=== PATIENT | male | born 1975 | race Caucasian/White ===

== ENCOUNTER 2016-03-13 13:28 | Emergency (ER) | payer BC ==
[2016-03-13 13:50] VITALS: BP 146/94
--- NOTE | 2016-03-13 16:06 | ERNOTE ---
ENT HPI Date of Service: 03/13/16 Presenting Symptoms: other - Sore throat Time Seen by Provider: 03/13/16 15:52 Source: patient, RN notes reviewed Exam Limitations: no limitations - Immun/Allergies/Home Medications Immunizations: IMMUNIZATION HX Immunizations Up to Date Yes History of Influenza Vaccine No Allergies/Adverse Reactions: Allergies Allergy/AdvReac Type Severity Reaction Status Date / Time No Known Allergies Allergy Verified 03/13/16 13:50 Home Medications: HOME MEDICATIONS NK [No Home Medication] 03/13/16 [Last Taken Unknown] - History of Present Illness Narrative: 40 y/o male ambulatory to ED for a sore throat that began 1 week ago. He also reports a cough, chills, headache, and body aches. His symptoms improve when he takes OTC cold medications. He reports that his coworkers have had similar symptoms. ENT Location: Present: throat Prearrival Treatment: Present: over the counter meds Associated Symptoms - ENT: Reports: malaise, cough, sore throat, headache. Denies: poor fluid intake, poor solid intake, nasal congestion/drainage, facial pain/swelling, tooth pain, ear drainage Prior Treament: Denies: recently seen Review of Systems - Review of Systems Constitutional: Present: chills, fatigue, malaise EYE: Present: no symptoms reported ENT: Present: See HPI Respiratory: Present: cough. Absent: shortness of breath, wheezing Cardiology: Absent: chest pain, syncope Gastrointestinal/Abdominal: Absent: nausea, vomiting, abdominal pain Genitourinary: Present: no symptoms reported Musculoskeletal: Present: muscle pain. Absent: neck pain Skin: Absent: rash, lesions Neurological: Present: headache. Absent: dizziness/light-headedness Endocrine: Present: no symptoms reported Hematologic/Lymphatic: Present: no symptoms reported Psych: Present: no symptoms reported - Patient's Past Medical History Patient History - Medical: Hypothyroidism, Other Patient History - Cardiac/Respiratory: No pertinent hx Patient History - Cancer: No Hx of Cancer Patient History - Surgical Procedures: No surgical history - Family History Mother Family History - Medical: No pertinent hx Family History - Cardiac/Respiratory: No pertinent hx Father Family History - Medical: No pertinent hx Family History - Cardiac/Respiratory: No pertinent hx - Social History Living Situations: spouse Smoking Status: Former smoker Have you smoked in the past 12 months: No Do you dip or chew tobacco: No Alcohol Use: occasionally Drug Use: none Physical Exam - Physical Exam General Appearance: Present: wd/wn, alert, no apparent distress Eye Exam: Normal inspection: bilateral Ears, Nose, Throat: Present: hearing grossly normal, pharyngeal erythema. Absent: abnormal TM (R), abnormal TM (L), nasal congestion, sinus pain/drainage , pharyngeal swelling Neck: Present: normal inspection, nontender, supple, full range of motion. Absent: lymphadenopathy (R), lymphadenopathy (L) Respiratory: Present: no respiratory distress, normal breath sounds, no accessory muscle use, lungs clear Cardiovascular/Chest: Present: regular rate, rhythm, no murmur, normal peripheral pulses Neurological Exam: Present: alert, oriented, normal mood/affect, no motor/ sensory deficits Skin Exam: Present: normal color, warm/dry ED Progress - Results and Orders Patient's Lab Results:: I have reviewed the patient's lab results. - Vital Signs Patient's Vital Signs:: I have reviewed the patient's vital signs. Vital Signs: Vital Signs 03/13/16 13:47 Temperature 35.6 C L Pulse Rate 96 Respiratory 14 Rate Blood Pressure 146/94 O2 Sat by Pulse 96 Oximetry - Progress/Reassessment Chief Complaint: Sore Throat Progress:: Unchanged Departure Clinical Impression: Upper respiratory infection, viral - Departure Disposition: Home self-care Condition: Good Instructions: Upper Respiratory Infection, Adult, [id number] Additional Instructions: Increase fluid intake Rest Tylenol and/or ibuprofen for pain/fever Robitussin DM for cough Follow up as needed Referrals: Gallito Small MD [Primary Care Provider] -
== END 2016-03-13 16:03 | disposition home or self-care (01) ==
LOC: ER 13:28
DX: J06.9 Acute upper respiratory infection, unspecified (principal); B97.89 Other viral agents as the cause of diseases classified elsewhere; Z87.891 Personal history of nicotine dependence